=== PATIENT | female | born 1960 | race Caucasian/White ===

== ENCOUNTER 2018-04-15 19:40 | Emergency (ER) | payer SELFPAY ==
[2018-04-15] MEDS ORDERED: Oxymetazoline 0.05% Nasal Spray 15 ML Bottle NAS ONE (19:46)
[2018-04-15] MEDS ORDERED: Lidocaine 1% 30 ML SDV INJECT ONE (19:49)
--- NOTE | 2018-04-15 20:50 | EDM.PDOC ---
ED HPI GENERAL MEDICAL PROBLEM - General Chief Complaint: ENT Problem Stated Complaint: NOSE BLEED Time Seen by Provider: 04/15/18 19:50 Source of Information: Reports: Patient History Limitations: Reports: No Limitations - History of Present Illness INITIAL COMMENTS - FREE TEXT/NARRATIVE: presents to ER with complaints of bleeding from both nares, but primarily from the right. She state that she has picked both nares today. She was at work during the onset of the bleeding. She denies any head or facial trauma. No weakness or lightheadedness. She states that she did have a bloody nose from the R nare several days ago which resolved on its own. Location: Reports: Face - Related Data Allergies Allergy/AdvReac Type Severity Reaction Status Date / Time No Known Allergies Allergy Verified 04/15/18 19:44 Home Meds: Home Meds Lisinopril 1 tab PO DAILY 04/15/18 [History] atorvaSTATin [Lipitor] 20 mg PO DAILY 04/15/18 [History] Past Medical History Cardiovascular History: Reports: Hypertension - Past Surgical History GI Surgical History: Reports: Hernia Repair/Other Social & Family History - Tobacco Use Smoking Status *Q: Never Smoker ED ROS GENERAL - Review of Systems Review Of Systems: See Below Constitutional: Reports: No Symptoms HEENT: Reports: Nosebleed Respiratory: Reports: No Symptoms Cardiovascular: Reports: No Symptoms GI/Abdominal: Reports: No Symptoms : Reports: No Symptoms Musculoskeletal: Reports: No Symptoms Skin: Reports: No Symptoms Neurological: Reports: No Symptoms ED EXAM, GENERAL - Physical Exam Exam: See Below Exam Limited By: No Limitations General Appearance: Alert, WD/WN, No Apparent Distress Eye Exam: Bilateral Eye: EOMI, Normal Fundi, Normal Inspection, PERRL Nose: Other (dried blood in both nares, no clots or active bleeding noted.). No : Normal Inspection, Nasal Deformity Throat/Mouth: Normal Inspection, Normal Lips, Normal Teeth, Normal Gums, Normal Oropharynx, Normal Voice, No Airway Compromise Head: Atraumatic, Normocephalic ED GENERAL MEDICAL PROCEDURES - Additional/Other Procedure(s) Other (Free Text) Procedure(s): afrin nasal spray and 1 spray each nare of 1% lidocaine to each nare. There were several areas of excoriation to the nasal mucosa of both nares, more on the R than left. These areas were cauterized with silver nitrate. Course - Vital Signs Last Recorded V/S: Last Vital Signs Temp 37.3 C 04/15/18 19:54 Pulse 85 04/15/18 19:54 Resp 18 04/15/18 19:54 BP 151/64 H 04/15/18 19:54 Pulse Ox 95 04/15/18 19:54 - Orders/Labs/Meds Meds: Medications Discontinued Medications Generic Name Dose Route Start Last Admin Trade Name Lizzie PRN Reason Stop Dose Admin Lidocaine HCl 30 ml 04/15/18 19:49 04/15/18 19:52 Xylocaine-Mpf 1% INJECT 04/15/18 19:50 30 ml ONETIME ONE Administration Oxymetazoline HCl 1 ml 04/15/18 19:46 04/15/18 19:52 Afrin Original 0.05% Nasal Henning BRIONNA 04/15/18 19:47 2 spray ONETIME ONE Administration Departure - Departure Time of Disposition: 20:12 Disposition: Home, Self-Care 01 Condition: Good Clinical Impression: Epistaxis - Discharge Information Instructions: Nosebleed, Adult Referrals: PCP,None [Primary Care Provider] - Forms: ED Department Discharge Additional Instructions: Off work the rest of the day. If you develop bleeding again, use the nasal spray and hold direct pressure. If it continues to bleed, come to ER and I will pack it. Do not blow nose for 24 hours.
== END 2018-04-15 20:12 | disposition home or self-care (01) ==
LOC: VM.ED 19:40
DX: R04.0 Epistaxis (principal); I10 Essential (primary) hypertension; Z79.899 Other long term (current) drug therapy
CPT/HCPCS: 30901; 99282; 99283; A9270

== ENCOUNTER 2022-03-24 14:01 | Emergency (ER) | payer SELFPAY ==
[2022-03-24] MEDS ORDERED: Lactated Ringers 1,000 ML IV ONE (14:26)
[2022-03-24 14:55] LABS: PTT,PARTIAL THROMBOPLSTIN TIME 21.6 SEC (20.5-30.9)
[2022-03-24 15:07] LABS: ANION GAP 14.4 mmol/L (5-15); CHLORIDE,CL 105 mmol/L (98-107); ESTIMATED GFR 72 mL/min (>=60); SODIUM,NA 140 mmol/L (136-145)
== END 2022-03-24 16:15 | disposition home or self-care (01) ==
LOC: VM.ED 14:01
DX: R55 Syncope and collapse (principal); E86.0 Dehydration; S00.432A Contusion of left ear, initial encounter; E78.00 Pure hypercholesterolemia, unspecified; I10 Essential (primary) hypertension; Z79.899 Other long term (current) drug therapy; W18.09XA Striking against other object with subsequent fall, initial encounter
CPT/HCPCS: 36415; 70450; 71045; 80053; 81001; 83605; 83735; 84100; 84443; 84484; 85025; 85610; 85730; 86140; 93005; 93010; 96360; 96361; 99284; 99285-25; J7120

== ENCOUNTER 2025-02-01 07:40 | Emergency (ER) | payer BC, MEDICARE ==
[2025-02-01 08:03] LABS: BASOPHILS PERCENT AUTO 0.1 % (0.2-1.2); HEMATOCRIT 48.1 % (33.0-47.0); HEMOGLOBIN 15.7 g/dL (12.0-16.0); IMMATURE GRAN ABSOLUTE AUTO 0.03 x10^3/uL (0.00-0.07); LYMPHOCYTES ABSOLUTE AUTO 0.2 x10^3/uL (1.0-4.8); MEAN CORPUSCULAR HEMOGLOBIN 28.8 pg (26.0-32.0); MEAN CORPUSCULAR HGB CONC 32.6 g/dL (32.0-36.0); MEAN CORPUSCULAR VOLUME 88.3 fL (78.0-93.0); MONOCYTES ABSOLUTE AUTO 0.5 x10^3/uL (0.0-0.8); MONOCYTES PERCENT AUTO 3.1 % (2.0-11.0); NEUTROPHILS ABSOLUTE AUTO 14.2 x10^3/uL (1.8-7.7); NEUTROPHILS PERCENT AUTO 95.6 % (50.0-80.0); PLATELET COUNT,PLT 183 x10^3/uL (130-400); RED BLOOD CELL COUNT 5.45 x10^6/uL (4.00-5.50); WHITE BLOOD CELL COUNT,WBC 14.9 x10^3/uL (4.0-10.0)
[2025-02-01 08:18] LABS: A/G RATIO 1.25; BILIRUBIN TOTAL 0.8 mg/dL (0.2-1.0); CALCIUM 8.6 mg/dL (8.5-10.1); EST CRCL DRUG DOSING (CG) 52.5 mL/min; POTASSIUM,K 4.2 mmol/L (3.5-5.1); PROTEIN TOTAL,TP 7.2 g/dL (6.4-8.2)
[2025-02-01] MEDS: Sodium Chloride 0.9% 1,000 ML IV ONE (08:21)
[2025-02-01] MEDS: Ondansetron 4 MG/2 ML SDV IVPUSH ONE (08:22)
[2025-02-01] MEDS: Ketorolac 30 MG/ML SDV IVPUSH ONE (08:22)
[2025-02-01 08:27] LABS: ANION GAP 11.2 mmol/L (5-15)
[2025-02-01 08:34] LABS: LIPASE 32 U/L (19-71)
[2025-02-01] MEDS: Iopamidol 612 MG/ML 100 ML Bottle IVPUSH ONE (09:52)
== END 2025-02-01 10:22 | disposition home or self-care (01) ==
LOC: SUPCPDRO 07:40 → VM.ED 07:40
DX: R19.7 Diarrhea, unspecified (principal); R10.10 Upper abdominal pain, unspecified; I10 Essential (primary) hypertension; E78.00 Pure hypercholesterolemia, unspecified; Z79.899 Other long term (current) drug therapy
CPT/HCPCS: 74177; 80053; 83690; 84484; 85025; 93005; 96361; 96374; 96375; 99284; J1885; J2405; J7030; Q9967; 36415